=== PATIENT | female | born 1960 | race Caucasian/White ===

== ENCOUNTER 2019-04-28 06:01 | Day surgery (SDC) | payer MEDICAID ==
[~2019-04-28] VITALS: Ht 157.5 cm; Wt 78.5 kg
[2019-04-28] MEDS ORDERED: ROCURONIUM BROMIDE 10 MG/ML (ZEMURON) IV ONE (07:45)
[2019-04-28] MEDS ORDERED: NS IRRIG SOLN 1000 ML IR ONE (07:45)
[2019-04-28] MEDS ORDERED: ONDANSETRON HCL 4 MG/2 ML VIAL IVP ONE (07:45)
[2019-04-28] MEDS ORDERED: GLYCOPYRROLATE 0.2 MG/ML VIAL IJ ONE (07:45)
[2019-04-28] MEDS ORDERED: DEXAMETHASONE SOD PHOSPHATE 4 MG/ML VIAL IVP ONE (07:45)
[2019-04-28] MEDS ORDERED: fentaNYL CITRATE/PF 100 MCG/2 ML AMP IVP ONE (07:45)
[2019-04-28] MEDS ORDERED: PROPOFOL 200MG/ 20ML VIAL (DIPRIVAN) IV ONE (07:45)
[2019-04-28] MEDS ORDERED: MIDAZOLAM HCL 5 MG/5 ML VIAL IVP ONE ×2 (07:45)
[2019-04-28] MEDS ORDERED: SEVOFLURANE 15 MIN GAS INH ONE (07:45)
[2019-04-28] MEDS ORDERED: BACITRACIN ZINC 15 GM TOPICAL OINTMENT TP ONE (07:45)
[2019-04-28] MEDS ORDERED: NEOSTIGMINE METHYLSULFATE 1 MG/ML, 10 ML VIAL IVP ONE (07:45)
[2019-04-28] MEDS ORDERED: OXYMETAZOLINE HCL 0.05% NASAL SPRAY NS ONE (07:45)
[2019-04-28] MEDS ORDERED: fentaNYL CITRATE/PF 100 MCG/2 ML AMP IVP PRN ×2 (08:30)
[2019-04-28] MEDS ORDERED: ONDANSETRON HCL 4 MG/2 ML VIAL IVP PRN (08:30)
[2019-04-28] MEDS: fentaNYL CITRATE/PF 100 MCG/2 ML AMP ONE ×2 (10:35→11:20)
[2019-04-28 14:00] VITALS: BP_SYST 125
== END 2019-04-28 14:44 | disposition home or self-care (01) ==
LOC: SDS 06:01 → SMU 06:03 → SDS 14:44
PROVIDERS: ATTEND Otolaryngology
DX: J32.9 Chronic sinusitis, unspecified (principal); J33.9 Nasal polyp, unspecified; D38.5 Neoplasm of uncertain behavior of other respiratory organs; E66.3 Overweight; J30.1 Allergic rhinitis due to pollen; Z80.0 Family history of malignant neoplasm of digestive organs
CPT/HCPCS: 30140; 30520; 31253; 31256; 87070 ×2; 87075; 87101; 88305; 88311; C1726; J1100; J2250; J2405; J2704; J2710; J3010; J3490; J7120